=== PATIENT | male | born 1980 | race Caucasian/White ===

== ENCOUNTER 2019-11-08 14:24 | Emergency (ER) | payer BC, SELFPAY ==
[2019-11-08 14:35] VITALS: BP 159/86; PULSE 88; RESP 16; TEMP 36.5; O2SAT 98
--- NOTE | 2019-11-08 14:52 | ED.GENADULT ---
HPI - General Adult General Chief complaint: Unspecified Stated complaint: needs work release Time Seen by Provider: 11/08/19 14:53 Source: patient and RN notes reviewed Mode of arrival: ambulatory Limitations: no limitations History of Present Illness HPI narrative: 39-year-old male presents with complaints of being dehydration due to nausea and diarrhea for 2 days. Beni says prior to nausea and diarrhea he had been outside working. Has been increasing intake daily with great improvement 1 day ago. Nausea and diarrhea without vomiting, abdominal pain or cramping. Exacerbating factors consist of eating and drinking. Denies fever or chills. Denies headache, dizziness, back pain, dysuria, and blood in stool. The patient reports he have not been diagnosed with COVID-19. The patient reports he is not waiting for the results of a COVID-19 lab test. The patient reports he do not have fever, chills, weakness, fatigue, myalgia, or facial swelling. The patient reports he do not have a new or worsening cough or shortness of breath. Denies chest pain. The patient reports he do not have any rhinorrhea, congestion, sore throat, nausea, vomiting, abdominal pain, and diarrhea. Tolerating po intake well. Denies recent traveling. Denies concerns for COVID-19 or exposures been home since [id number] order except for essential household needs, working, and return home. At this time, patient is not suspected of having COVID-19. Some parts of this dictation were generated by voice recognition software and may contain typographical and/or grammatical inaccuracies. Related Data Home Medications Medication Instructions Recorded Confirmed No Home Medications 11/08/19 11/08/19 Allergies Allergy/AdvReac Type Severity Reaction Status Date / Time Penicillins Allergy Unknown Verified 11/08/19 14:54 Review of Systems Review of Systems: Narrative: CONSTITUTIONAL: Denies fever, chills, sweats. EYES: Denies visual changes, redness, discharge. ENT: Denies rhinorrhea, congestion, sore throat, otalgia. CARDIOVASCULAR: Denies chest pain, palpitations, edema. RESPIRATORY: Denies dyspnea, wheezing, cough. GASTROINTESTINAL: Denies abdominal pain, vomiting, diarrhea. Complains of nausea diarrhea, and decrease appetite-All resolved. GENITOURINARY: Denies dysuria, hematuria, abnormal discharge. SKIN: Denies rash or itching. MUSCULOSKELETAL: Denies acute back pain, joint pain, or myalgia. NEUROLOGIC: Denies numbness or focal weakness. PSYCHIATRIC: Denies anxiety or depression. All other systems reviewed are negative, except as documented in HPI and below. [facility] Past Medical History Medical History (Updated 11/09/19 @ 00:00 by Roverto Colindres) No significant past medical history Surgical History Surgical History (Updated 11/08/19 @ 15:12 by JUJU Jones) No significant past surgical history Family History Family History (Updated 11/08/19 @ 15:13 by JUJU Jones) Father No problems noted. Mother No problems noted. Social History Social History (Updated 11/08/19 @ 15:13 by JUJU Jones) Smoking packs per day: 1 Smoking cigarettes per day: 20.0 Years smoked: 22 Smoking pack-years: 22.00 Smoking status: Current every day smoker Tobacco type: cigarettes Alcohol intake: current Substance use: current Substance use type: marijuana Gender identity (if verbalized by the patient): Male Comments At time of signature, I have reviewed and agree with nursing past medical, surgical, social, and family history. Please see nursing chart for further information. There is no relevant family history pertinent to the presenting complaint. Exam Narrative: Exam Narrative: GENERAL: This is a well-nourished, well-developed patient, in no apparent distress. Talks in full sentences without deficits and ambulates with steady gait without dyspnea. HEAD: normocephalic, atraumatic. EYES: PE
== END 2019-11-08 15:15 | disposition home or self-care (01) ==
PROVIDERS: Emergency Provider Nurse Practitioner Family
DX: K52.9 Noninfective gastroenteritis and colitis, unspecified (principal); F17.210 Nicotine dependence, cigarettes, uncomplicated
CPT/HCPCS: 99211; G0463